=== PATIENT | female | born 1985 | race African-American/Black ===

== ENCOUNTER 2016-12-10 08:25 | Day surgery (SDC) | payer BC ==
--- NOTE | ~2016-12-10 | EGD ---
EGD REPORT [facility] [address] [place] [address] NAME: ELEAZAR ROMERO : [birth year] STATUS : [place] [facility] [place]#: [id number] AGE: 30 ADM/REG DATE : 12/10/16 MR#: [id number] REPORT SERV DATE: 12/10/16 DICTATED BY: JACQUELINE KELLY DATE: 12/10/16 REPORT STATUS : Draft TRANSCRIBED BY: [facility] DATE: 12/10/16 Endoscopy Center Patient Name: Eleazar Romero Date of : 1985 Attending MD: JACQUELINE KELLY MD Procedure Date No Time: 12/10/2016 Procedure: Colonoscopy Indications: Generalized abdominal pain, Hematochezia, Constipation Referring MD: Mini Savage Medicines: Propofol per Anesthesia Complications: No immediate complications. Estimated blood loss: None. Procedure: Pre-Anesthesia Assessment: - After reviewing the risks and benefits, the patient was deemed in satisfactory condition to undergo the procedure. - Prior to the procedure, a History and Physical was performed, and patient medications and allergies were reviewed. The patient's tolerance of previous anesthesia was also reviewed. The risks and benefits of the procedure and the sedation options and risks were discussed with the patient. All questions were answered, and informed consent was obtained. Prior Anticoagulants: The patient has taken no previous anticoagulant or antiplatelet agents. ASA Grade Assessment: II - A patient with mild systemic disease. After reviewing the risks and benefits, the patient was deemed in satisfactory condition to undergo the procedure. After I obtained informed consent, the scope was passed under direct vision. Throughout the procedure, the patient's blood pressure, pulse, and oxygen saturations were monitored continuously. The CF [id number] was introduced through the anus and advanced to the cecum, identified by appendiceal orifice and ileocecal valve. The colonoscopy was performed without difficulty. The ileocecal valve and appendiceal orifice were photographed. The patient tolerated the procedure well. The quality of the bowel preparation was adequate. The bowel preparation used was an extended prep with polyethylene glycol (PEG) and magnesium citrate. Scope withdrawal time was greater than 6 minutes. Findings: The perianal and digital rectal examinations were normal. Pertinent negatives include normal sphincter tone. Non-bleeding internal hemorrhoids were found during retroflexion and EGD REPORT [address] [address] NAME: ELEAZAR ROMERO : [birth year] STATUS : REG [facility]#: [id number] AGE: 30 ADM/REG DATE : 12/10/16 MR#: [id number] REPORT SERV DATE: 12/10/16 DICTATED BY: JACQUELINE KELLY DATE: 12/10/16 REPORT STATUS : Draft TRANSCRIBED BY: [facility] DATE: 12/10/16 were small and Grade I (internal hemorrhoids that do not prolapse). The exam was otherwise without abnormality on direct and retroflexion views. Impression: - Non-bleeding internal hemorrhoids. - The examination was otherwise normal on direct and retroflexion views. - Irritable bowel syndrome with constipation. Recommendation: - Discharge patient to home (ambulatory). - Return to previous diet. - Continue present medications: - Linzess 290 mcg daily. - Levsin (hyoscyamine) as needed. - Repeat colonoscopy in 5 years for screening purposes. - Return to GI clinic in 3 weeks. - Patient has a contact number available for emergencies. The signs and symptoms of potential delayed complications were discussed with the patient. Return to normal activities tomorrow. Written discharge instructions were provided to the patient. Procedure Code(s): --- Professional --- 10798, Colonoscopy, flexible, proximal to splenic flexure; diagnostic, with or without collection of specimen(s) by brushing or washing, with or without colon decompression (separate procedure) Diagnosis Code(s): --- Professional --- K64.0, First degree hemorrhoids K58.9, Irritable bowel syndrome without diarrhea R10.84, Generalized abdominal pain K92.1, Melena K59.00, Constipation, unspecified CPT copyright 2013 [employer]. All rights reserved. The codes documented in this report are preliminary and upon head filter tank tender helper review may be revised to meet current compliance requirements. JACQUELINE KELLY MD 12/10/2016 11:20 AM This report has been signed electronically. Number of Addenda: 0 EGD REPORT [facility] [address] [address] NAME: ELEAZAR ROMERO : [birth year] [place]US : [place] [facility] [place] PAT#: [id number] AGE: 30 ADM/REG DATE : 12/10/16 MR#: [id number] REPORT SERV DATE: 12/10/16 DICTATED BY: JACQUELINE KELLY DATE: 12/10/16 REPORT STATUS : Draft TRANSCRIBED BY: [employer] DATE: 12/10/16 Note Initiated On: 12/10/2016 10:27 AM Scope Withdrawal Time 0 hours 6 minutes 47 seconds [address] [address]
--- NOTE | ~2016-12-10 | EGD ---
EGD REPORT [facility] [address] [place] [address] NAME: ELEAZAR ROMERO : [birth year] [place] [facility] [place] [id number] AGE: 30 ADM/REG DATE : 12/10/16 MR#: [id number] REPORT SERV DATE: 12/10/16 DICTATED BY: JACQUELINE KELLY DATE: 12/10/16 REPORT STATUS : Draft TRANSCRIBED BY: [facility] DATE: 12/10/16 Endoscopy Center Patient Name: Eleazar Romero Date of : 1985 Attending MD: JACQUELINE KELLY MD Procedure Date No Time: 12/10/2016 Procedure: Upper GI endoscopy Indications: Upper abdominal pain, Nausea with vomiting Referring MD: Mini Savage Medicines: Propofol per Anesthesia Complications: No immediate complications. Estimated blood loss: None. Procedure: Pre-Anesthesia Assessment: - After reviewing the risks and benefits, the patient was deemed in satisfactory condition to undergo the procedure. - Prior to the procedure, a History and Physical was performed, and patient medications and allergies were reviewed. The patient's tolerance of previous anesthesia was also reviewed. The risks and benefits of the procedure and the sedation options and risks were discussed with the patient. All questions were answered, and informed consent was obtained. Prior Anticoagulants: The patient has taken no previous anticoagulant or antiplatelet agents. ASA Grade Assessment: II - A patient with mild systemic disease. After reviewing the risks and benefits, the patient was deemed in satisfactory condition to undergo the procedure. After obtaining informed consent, the endoscope was passed under direct vision. Throughout the procedure, the patient's blood pressure, pulse, and oxygen saturations were monitored continuously. The GIF [id number] was introduced through the mouth, and advanced to the jejunum. The upper GI endoscopy was accomplished without difficulty. The patient tolerated the procedure well. Findings: The examined esophagus was normal. Diffuse mild inflammation characterized by congestion (edema) and granularity was found in the gastric antrum. A moderate amount of bilious fluid was suctioned from the body of the stomach. Biopsies were taken with a cold forceps for histology. Estimated blood loss: none. The gastroesophageal junction (on retroflexion) was normal. The examined duodenum was normal. Biopsies were taken with a cold forceps for histology. Estimated blood loss: none. EGD REPORT [place] [address] [place]. [address] NAME: ELEAZAR ROMERO : [birth year] STATUS : REG [facility]#: [id number] AGE: 30 ADM/REG DATE : 12/10/16 MR#: [id number] REPORT SERV DATE: 12/10/16 DICTATED BY: JACQUELINE KELLY DATE: 12/10/16 REPORT STATUS : Draft [facility]IBED BY: [facility] DATE: 12/10/16 Impression: - Normal esophagus. - Bile gastritis. Biopsied. - Normal gastroesophageal junction. - Normal examined duodenum. Biopsied. - Non-erosive esophageal reflux (NERD) disease present. Recommendation: - Discharge patient to home (ambulatory). - Stop smoking. - Return to previous diet. - Continue present medications including Nexium (esomeprazole) 40 mg daily before breakfast. - Continue Zofran (ondansetron) as needed for nausea. - Await pathology results. - We will schedule a gallblader ultrasound. - Perform a colonoscopy today. - Patient has a contact number available for emergencies. The signs and symptoms of potential delayed complications were discussed with the patient. Return to normal activities tomorrow. Written discharge instructions were provided to the patient. Procedure Code(s): --- Professional --- 83103, Esophagogastroduodenoscopy, flexible, transoral; with biopsy, single or multiple Diagnosis Code(s): --- Professional --- K29.60, Other gastritis without bleeding K21.9, Gastro-esophageal reflux disease without esophagitis R10.10, Upper abdominal pain, unspecified R11.2, Nausea with vomiting, unspecified CPT copyright 2013 [employer]. All rights reserved. The codes documented in this report are preliminary and upon supervisor matrix review may be revised to meet current compliance requirements. JACQUELINE KELLY MD 12/10/2016 10:58 AM This report has been signed electronically. Number of Addenda: 0 Note Initiated On: 12/10/2016 10:34 AM Scope Withdrawal Time 0 hours 0 minutes 0 seconds EGD REPORT [facility] [address] [address] NAME: ELEAZAR ROMERO : [birth year] [place] [facility] [place] [id number] AGE: 30 ADM/REG DATE : 12/10/16 MR#: [id number] REPORT SERV DATE: 12/10/16 DICTATED BY: JACQUELINE KELLY. DATE: 12/10/16 REPORT STATUS : Draft [facility]ANSCRIBED BY: [facility] DATE: 12/10/16 [address] [address]
[~2016-12-10 08:25] MED LIST: DEPO IJ; HARD NAILS PO; HYZAAR 100/25 T1 TAB PO; LEVSINTAB PO; LINZESS 290 M290 MCG PO; NEXIUM40 PO; TAMIFLU PO; TRAZ50 PO; ZOFRAN4 PO
[2016-12-31] MEDS ORDERED: CELEXA20 PO (10:10)
[2017-01-26] MEDS ORDERED: LIBRIUM 25 MG C25 MG PO (08:22)
[2017-01-26] MEDS ORDERED: DSS PO (08:23)
[2017-01-26] MEDS ORDERED: FESO4 PO (08:23)
[2017-01-26] MEDS ORDERED: MVI PO (08:24)
[2017-01-26] MEDS ORDERED: KDUR10 PO (08:25)
[2017-01-26] MEDS ORDERED: VITE TOP (08:35)
[2017-01-26] MEDS ORDERED: ZOFRAN4 PO (08:35)
[2017-01-26] MEDS ORDERED: IBU800 PO (08:37)
[2017-01-26] MEDS ORDERED: TORATAB PO (08:38)
[2017-01-26] MEDS ORDERED: ZYVOXPO PO (08:39)
[2017-01-26] MEDS ORDERED: SEPTRA DS1 TAB PO (08:39)
== END 2016-12-10 23:59 | disposition home or self-care (01) ==
LOC: DMU 08:25
PROVIDERS: Internal Medicine Gastroenterology
PROC: 0DJD8ZZ Inspection of Lower Intestinal Tract, Via Natural or Artificial Opening Endoscopic (ICD-10-PCS; 2016-12-10)
PROC: 0DB68ZX Excision of Stomach, Via Natural or Artificial Opening Endoscopic, Diagnostic (ICD-10-PCS; principal; 2016-12-10 09:30)
PROC: 0DB98ZX Excision of Duodenum, Via Natural or Artificial Opening Endoscopic, Diagnostic (ICD-10-PCS; 2016-12-10 09:30)
DX: K29.70 Gastritis, unspecified, without bleeding (principal); K21.9 Gastro-esophageal reflux disease without esophagitis; R10.10 Upper abdominal pain, unspecified; R11.2 Nausea with vomiting, unspecified; K64.0 First degree hemorrhoids; K58.9 Irritable bowel syndrome, unspecified; R10.84 Generalized abdominal pain; K92.1 Melena; K59.00 Constipation, unspecified; F17.210 Nicotine dependence, cigarettes, uncomplicated
CPT/HCPCS: 84703; 88305